=== PATIENT | female | born 1995 | race Caucasian/White ===

== ENCOUNTER 2019-08-30 09:11 | Emergency (ER) | payer MEDICAID ==
[~2019-08-30] VITALS: Ht 160 cm; Wt 77.1 kg
[2019-08-30 09:20] VITALS: BP 120/80
--- NOTE | 2019-08-30 09:22 | NUR ---
PT WHEELCHAIRED TO BED 3
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
--- NOTE | 2019-08-30 10:29 | NUR ---
APPLIED SAVANAH WRAP TO LEFT KNEE WITHOUT ANY ISSUES
--- NOTE | 2019-08-30 10:30 | NUR ---
Patient discharged with v/s stable. Written and verbal after care instructions given and explained. Patient verbalized understanding. Ambulatory without assistance. Per pt feels better with gideon wrap. All questions addressed prior to discharge. Advised to follow up with PMD.
[2019-08-30 10:31] VITALS: BP 119/65
== END 2019-08-30 10:30 | disposition home or self-care (01) ==
LOC: MED 09:11
DX: M25.562 Pain in left knee (principal); W19.XXXA Unspecified fall, initial encounter; Y93.89 Activity, other specified; Y92.89 Other specified places as the place of occurrence of the external cause; Y99.8 Other external cause status
CPT/HCPCS: 73562; 99283

== ENCOUNTER 2020-03-22 19:55 | Emergency (ER) | payer SELFPAY ==
[~2020-03-22] VITALS: Ht 152.4 cm; Wt 91.2 kg
[2020-03-22 20:11] VITALS: BP 123/61
--- NOTE | 2020-03-22 20:15 | NUR ---
PT AMBULATED TO ER CHAIR C W/ STEADY GAIT.
--- NOTE | 2020-03-22 20:35 | NUR ---
ERPA AT BEDSIDE FOR MEDICAL EVALUATION.
[2020-03-22] MEDS ORDERED: BACITRACIN OINT 500 UNITS/GM PKT TP ONE (20:40)
[2020-03-22] MEDS ORDERED: LIDOCAINE MPF 1% 10 MG/ML VIAL INJ ONE (20:40)
[2020-03-22] MEDS ORDERED: IBUPROFEN 600 MG TAB PO ONE (20:40)
--- NOTE | 2020-03-22 21:20 | NUR ---
PT SITTING IN CHAIR C, NO DISTRESS NOTED AT THIS TIME.
--- NOTE | 2020-03-22 21:43 | NUR ---
DERMABOND PLACED ON PTS FINGER. PTS RIGHT INDEX FINGER WAS THEN COVERED IN A BANDAID. P[place] [facility] [place]
[2020-03-22 22:21] VITALS: BP 123/61
== END 2020-03-22 22:10 | disposition home or self-care (01) ==
LOC: MED 19:55
DX: S61.210A Laceration without foreign body of right index finger without damage to nail, initial encounter (principal); W26.8XXA Contact with other sharp object(s), not elsewhere classified, initial encounter; Y93.89 Activity, other specified; Y92.89 Other specified places as the place of occurrence of the external cause; Y99.8 Other external cause status
CPT/HCPCS: 12001; 90471; 90715; 99283; J2001